=== PATIENT | female | born 1995 | race Caucasian/White ===

== ENCOUNTER 2016-09-09 08:31 | Observation (INO) ==
[2016-09-09 08:57] LABS: Bilirubin,Urine Negative (Negative); Blood,Urine Negative (Negative); Clarity,Urine Cloudy (Clear); Color,Urine Yellow (Yellow); Glucose,Urine (UA) Normal (Normal); Ketones,Urine Negative (Negative); Leukocyte Esterase,Urine Large (Negative); Nitrite,Urine Negative (Negative); Protein,Urine Trace mg/dL (Neg-Trace); Specific Gravity,Urine 1.019 (1.010-1.025); Urobilinogen,Urine Normal (Normal)
[2016-09-09 09:04] LABS: Bacteria,Urine Few per hpf (None-Few); Hyaline Casts,Urine None Seen per lpf (None-Few); Squamous Epithelial Cell,Urine Many per lpf (None-Few); WBC,Urine 30-50 per hpf (0-3)
--- NOTE | 2016-09-09 11:37 | Discharge Summary ---
Date of Encounter: 09/09/16 Time of Encounter: 11:37 - Discharge Diagnosis (1) 37 weeks gestation of Priority: Primary Status: Acute (2) Polyhydramnios Priority: Primary Status: Acute Qualifiers: Fetus number: single or unspecified fetus Trimester: third trimester Qualified Code(s): O40.3XX0 - Polyhydramnios, third trimester, not applicable or unspecified (3) NST (non-stress test) reactive Priority: Secondary Status: Acute Comments: Baseline 135 (4) False labor Priority: Primary Status: Acute Comments: Patient presents to triage with lower back pain and increased vaginal pressure and occasional contractions. Denies vaginal bleeding or leaking of fluid and endorses good movement. Patient stated last night contractions started approximately 3:00 this morning ranging from 5-10 minutes apart. 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 Patient with contraction every 2-3 minutes mild to palpation patient able smile and talk with family during contraction. No cervical change during 2 hour observation period. Will discharge home. Advised patient if she feels like contractions are stronger she would want to stay around the area may be having lunch and go shopping before driving the hour and 20 minutes home and come back to hospital for reevaluation if needed. Discussed labor precautions once return to triage and when to call provider with patient. Patient and family verbalized understanding - Discharge Medications Home Medications: Ranitidine HCl [Zantac] 150 mg PO DAILY #14 tablet 04/25/16 [Rx] Ranitidine Oral Soln [Zantac] 150 mg PO DAILY #14 mls 04/25/16 [Rx] Allergies/Adverse Reactions: Allergies codeine Allergy (Verified 02/13/16 06:19) See Comments novacaine Allergy (Uncoded 02/13/16 06:19) See Comments Data Procedures and tests throughout hospitalization: Laboratory Tests 09/09/16 08:45 Urine Color Yellow Urine Clarity Cloudy A Urine pH 6.0 Ur Specific [place] 1.019 Urine Protein Trace Urine Glucose (UA) Normal Urine Ketones Negative Urine Blood Negative Urine Nitrite Negative Urine Bilirubin Negative Urine Urobilinogen Normal Ur Leukocyte Esterase Large H Urine Microscopic RBC 3-5 H Urine Microscopic WBC 30-50 H Ur Squamous Epith Cells Many H Urine Bacteria Few Hyaline Casts None Seen Ur Culture Indicated? YES A Labs on day of discharge: Labs from last 24 hours 09/09/16 08:45 Urine Color Yellow Urine Clarity Cloudy A Urine pH 6.0 Ur Specific [place] 1.019 Urine Protein Trace Urine Glucose (UA) Normal Urine Ketones Negative Urine Blood Negative Urine Nitrite Negative Urine Bilirubin Negative Urine Urobilinogen Normal Ur Leukocyte Esterase Large H Urine Microscopic RBC 3-5 H Urine Microscopic WBC 30-50 H Ur Squamous Epith Cells Many H Urine Bacteria Few Hyaline Casts None Seen Ur Culture Indicated? YES A Date of admission: 09/09/16 08:31 Primary care physician: PCP NO Discharging clinician: Kenisha Kim Anticipated date of discharge: 09/09/16 - Patient Status Disposition: Home, Self-Care Condition: Good Functional capacity at discharge: independent ambulation Overall status at discharge: patient is back to baseline - Discharge Instructions Follow Up With: SAMINA,PCP [Primary Care Provider] - Additional Instructions: LABOR AND DELIVERY DISCHARGE INSTRUCTIONS Signs and Symptoms to be Reported to your Doctor Immediately: * Sudden gush, continuous or intermittent lead of fluid from vagina (note the time of gush and color of fluid) * Onset of bright red vaginal bleeding with or without pain (if you had a vaginal exam during this visit you may notice some dark red spotting. This is normal.) * Contractions that are 5 minutes apart (from the beginning of one contraction to the beginning of the next) and last 45-60 seonds; contractions that you can no longer walk, talk or laugh through. * A change in the baby's activity. This could be an increase or decrease in activity. * Severe headache which does not go away with tylenol. * Sudden swelling in the face, hands, arms and/or legs. * Upper abdominal pain - sometimes associated with heartburn or nausea and is not relieved by Maalox, Mylanta or Tums. * Kick Counts __ One hour after a meal, lay down on one side in a quiet place. Count the number of time the baby moves during an hour. 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: Total time spent providing and/or coordinating discharge services: Exam - Constitutional General appearance IM: A&O X 3 - Respiratory Respiratory exam: Present: CTAB - Cardiovascular Cardiovascular exam IM: Present: RRR - GI/Abdominal GI/Abdominal exam IM: normal bowel sounds, soft - Additional comments: Uterus soft and nontender to palpation and soft in between contractions - Extremities Exam Extremities exam IM: Present: normal capillary refill, normal inspection - Neurological Exam Neurological exam: normal gait, reflexes normal - VTE Reasons for not Prescribing Prophylaxis: Treatment not Indicated - Low risk for VTE
== END 2016-09-09 11:43 | disposition home or self-care (01) ==
LOC: 1NENULAB
PROVIDERS: ADMIT Advanced Practice Midwife; ATTEND Advanced Practice Midwife

== ENCOUNTER 2016-09-09 15:47 | Observation (INO) ==
--- NOTE | 2016-09-09 16:48 | Discharge Summary ---
Date of Encounter: 09/09/16 Time of Encounter: 16:47 - Discharge Diagnosis (1) 37 weeks gestation of Priority: Primary Status: Acute (2) False labor Priority: Secondary Status: Acute Comments: Patient reports in to triage after going out to lunch at [employer] and walking around [place]. Patient sees she feels increased pelvic pressure and occasional contractions, patient states feeling bearing down sensation with pelvic pressure. Vaginal exam unchanged from earlier. Per patient she had some fluids but not a great amount of fluids while out at lunch and walking around park, discussed need to have increased fluid intake later on in . If vaginal exam remains unchanged will discharge patient to home discussed with patient went to return to triage and call provider for follow-up. Patient scheduled for ultrasound and routine OB visit tomorrow told patient to keep both appointments (3) NST (non-stress test) reactive Priority: Primary Status: Acute Comments: Baseline 135 (4) Polyhydramnios Priority: Primary Status: Acute Comments: Ultrasound tomorrow Qualifiers: Fetus number: single or unspecified fetus Trimester: third trimester Qualified Code(s): O40.3XX0 - Polyhydramnios, third trimester, not applicable or unspecified - Discharge Medications Home Medications: Vitamins 1 tab PO DAILY 09/09/16 [History] Allergies/Adverse Reactions: Allergies codeine Allergy (Verified 02/13/16 06:19) See Comments novacaine Allergy (Uncoded 02/13/16 06:19) See Comments Date of admission: 09/09/16 15:47 Primary care physician: PCP NO Discharging clinician: Kenisha Kim Anticipated date of discharge: 09/09/16 - Patient Status Disposition: Home, Self-Care Condition: Good Functional capacity at discharge: independent ambulation Overall status at discharge: patient is back to baseline - Discharge Instructions Follow Up With: NO,PCP [Primary Care Provider] - - Diet and Activity Activity: resume usual activities as tolerated Diet: 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
== END 2016-09-09 17:21 | disposition home or self-care (01) ==
LOC: 1NENULAB
PROVIDERS: ADMIT Advanced Practice Midwife; ATTEND Advanced Practice Midwife

== ENCOUNTER 2016-09-23 | Inpatient (IN) ==
[2016-09-24] MEDS ORDERED: miSOPROStol 25 MCG TABLET PO PRN (07:46)
[2016-09-24] MEDS ORDERED: Ondansetron 4 MG/2 ML VIAL IVP PRN (07:46)
[2016-09-24] MEDS ORDERED: Naloxone 0.4 MG/ML INJ IVP PRN (07:46)
[2016-09-24] MEDS ORDERED: Famotidine 20 MG/2 ML VIAL IVP PRN (07:46)
[2016-09-24] MEDS ORDERED: *HR* Nalbuphine 20 MG/ML AMPUL IVP PRN (07:46)
[2016-09-24] MEDS ORDERED: 0.9 % Sodium Chloride 1,000 ML IVC SCH (08:00)
[2016-09-24 08:49] LABS: Basophils % 0.3 %; Eosinophils % 0.4 %; Hematocrit 34.7 % (35.3-44.9); Hemoglobin 11.4 g/dL (11.5-15.4); Immature Granulocytes % 0.5 % (0-4); Lymphocytes # 1.5 K/mcL (0.6-4.6); Lymphocytes % 15.3 %; Mean Corpuscular HGB Conc 32.9 g/dL (31.6-35.5); Mean Corpuscular Hemoglobin 28.6 pg (28.0-33.3); Mean Corpuscular Volume 87.2 fL (83.0-100.0); Mean Platelet Volume 13.5 fL (9.4-12.4); Monocytes # 0.7 K/mcL (0.0-1.3); Monocytes % 7.5 %; Neutrophils # 7.5 K/mcL (1.6-8.9); Platelet Count 200 K/mcL (140-400); Red Blood Count 3.98 M/mcL (3.82-4.97); Red Cell Distribution Width 13.7 % (11.5-14.5)
[2016-09-24] MEDS ORDERED: Prenatal Vit/FA 1 EACH TABLET PO SCH (09:00)
--- NOTE | 2016-09-24 09:38 | OB/GYN History & Physical ---
Date of Encounter: 09/24/16 Time of Encounter: 08:54 Assessment and Plan (1) History of polyhydramnios Current visit: Yes Status: Acute Admit for induction. (2) 39 weeks gestation of Current visit: Yes Status: Acute Admit for induction of labor with po cytotec. Routine labor management Patient may have epidural upon request Vaginal delivery expected POC per consult with Dr Green History of Present Illness Chief complaint: Induction of Labor HPI: Ms. Brand is a 20 year old female at 39 weeks 1 day that arrives to labor and delivery for an elective induction of labor. She has a history of obesity with and polyhydramnious. Her blood type is O negative, she is GBS negative, and her serology is as follows: Rubella immune, Hep B immune, RPR negative, Varicella positive, and HIV negative. She has allergies to codeine and novacaine. Her CACHORRO at 32 weeks was 27.01 and at 38 weeks was 20. Past Med Surg Social Fam HX - Past Medical History Medical history: other Psychiatric history: no psych history - Past Surgical History Surgical History: other - Social History Smoking Status: Never smoker Smokeless Tobacco Status: No Alcohol use: none Drug use: none - Family History Mother Adopted: Yes Living Status: Still Living Hx Family Cardiac Disorders: No Hx Family Respiratory Disorders: No Hx Family Cancer: No Hx Family GI Disorders: No Hx Family Genitourinary Disorders: No Hx Family Endocrine Disorder: No Hx Family Musculoskeletal Disorders: No Hx Family Neuromuscular Disorders: No Hx Family Neurologic Disorders: No Hx Family HEENT Disorders: No Hx Family Autoimmune Disorders: No Hx Family Reproductive Disorders: No Hx Family Psychosocial Disorders: No Hx Family Medical Disorders: No Obstetrical History - Pregnancies : 1 Para: 0 Term: 0 : 0 Ab's: 0 Livin Medications and Allergies Vitamins 1 tab PO DAILY 09/09/16 [History] Allergies codeine Allergy (Verified 02/13/16 06:19) See Comments novacaine Allergy (Uncoded 02/13/16 06:19) See Comments Review of System OB All systems PM: reviewed and no additional remarkable complaints except as stated Exam - Vital Signs Vital signs: Initial Vital Signs Temp Pulse Resp BP 98.6 F 90 24 140/79 09/24/16 08:17 09/24/16 08:17 09/24/16 08:09/24/16 08:17 - Constitutional Constitutional: well developed, well nourished, no acute distress - HEENT HEENT: Normocephaly, Mucus Membranes Moist - Neck Neck exam: full ROM - Lungs Respiratory exam: CTAB - Cardiovascular Cardiovascular exam: RRR, +S1, +S2 - Breasts Breast: bilateral: normal - Abdomen Abdomen: Present: bowel sounds normal, gravid - Extremities Extremities exam: normal capillary refill, normal inspection, radial pulses palpable and symetrical Deep Tendon Reflex Grade: 2+ Normal - Cervix Dilation: 2 Effacement: 70 Station: -2 - Uterus Uterus exam: Present: normal size, normal contour Results All other labs normal. - VTE Reasons for not Prescribing Prophylaxis: Treatment not Indicated - Low risk for VTE
[2016-09-24] MEDS ORDERED: Ringers Solution, Lactated 1,000 ML ONE (14:55)
[2016-09-24] MEDS ORDERED: Oxytocin 20 units/ LR 1000 mL 20 UNIT/1,000 ML BAG IVC ONE (14:56)
[2016-09-24] MEDS ORDERED: Oxytocin 20 units/ LR 1000 mL 20 UNIT/1,000 ML BAG IVC SCH (15:00)
--- NOTE | 2016-09-24 16:22 | OB Labor Progress Note ---
Date of Encounter: 09/24/16 Time of Encounter: 16:19 Labor Progress Note - Subjective Subjective: Pt in bed states contractions are getting stronger. Breathing though contraction. - Cervix Cervix: 4/90/-1 - Heart Tones Heart Tones: 135/moderate/no decels - [place]: 1-3 - Interventions Interventions: IUPC placed for contraction monitoring. - Plan Plan: Continue pitocin per policy, Nubain if desired (unable to have epidural. Anesthesia consulted and stated due to novicaine allergy unable to place epidural Clear liquid diet anticipate
--- NOTE | 2016-09-24 16:26 | OB Labor Progress Note ---
Date of Encounter: 09/24/16 Time of Encounter: 12:00 Labor Progress Note - Subjective Subjective: Pt resting in bed comfortable with contractions. - Cervix Cervix: 2/90/-2 - Heart Tones Heart Tones: 125/moderate/accels/no decles - Interventions Interventions: Santos placed without difficulty. Pt tolerated procedure well - Plan Plan: Santos until expelled and then AROM Clear liquid diet nuabin if desired Anesthesia consult for epidural concerns with novicaine allergy Anticipate
--- NOTE | 2016-09-24 21:42 | OB Labor Progress Note ---
Date of Encounter: 09/24/16 Time of Encounter: 20:30 Labor Progress Note - Subjective Subjective: patient coping well. nubain given for pain mangement. - Cervix Cervix: 5/100/-1 - Heart Tones Heart Tones: 120/moderate/variable decels - [place]: 1-2 minutes - Interventions Interventions: Pt repositioned from side to side and removed peanut ball. Pitocin turned to off. Tracing improved after removal of peanut ball - Plan Plan: Continue frequent repositioning. When returns to category 1 tracing resume pitocin if contractions inadequate. Updated Dr. Green about tracing.
--- NOTE | 2016-09-24 23:34 | OB Labor Progress Note ---
Date of Encounter: 09/24/16 Time of Encounter: 23:32 Labor Progress Note - Subjective Subjective: Patient breathing through contractions in bed. Family at bedside. Patient states that she is "very tired". - Vital Signs Vital Signs: Stable - Cervix Cervix: 5/100/0 molding to +1 - Heart Tones Heart Tones: FHTs 120s with moderate variability. Scalp stimulation positive Accels not present unless with scalp stim Early decelerations present - [place]: Contractions every 2-3 minutes 90 seconds in length. - Plan Plan: Discussed options for vaginal delivery vs delivery due to decrease in heart rate variability and accelerations, and no cervical change and increased caput. No IV pitocin currently infusing. Patient unable to have epidural due to allergy to novacaine; anesthesia aware. Patient agreeable to delivery if needed; Dr Green notified
[2016-09-24] MEDS ORDERED: Metoclopramide 10 MG/2 ML VIAL IVP ONE (23:59)
[2016-09-25] MEDS ORDERED: *HR* FentaNYL (PF) 100 MCG/2 ML VIAL IVP ONE
--- NOTE | 2016-09-25 02:29 | Anesthesia Evaluation PreOp ---
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 Significant HX Other Medical History: Diabetes Type II (gestational), Other (BMI 44) Anesthesia History: No Prior Anesthetic Complications Alcohol Use: none Drug use: none Medications and Allergies Vitamins 1 tab PO DAILY 09/09/16 [History] Allergies codeine Allergy (Verified 02/13/16 06:19) See Comments novacaine Allergy (Uncoded 02/13/16 06:19) See Comments - Meds/Allergy Pre-op Review Medications Reviewed: Yes Allergies Reviewed: Yes Beta Blockers on Current Med List: No Anesthesia Results - Labs 09/24/16 08:29 Anesthesia Exam Last Vital Signs Temp 98.6 F 09/24/16 08:17 Pulse 90 09/24/16 08:17 Resp 24 09/24/16 08:17 BP 140/79 09/24/16 08:17 Weight: 103 kg NPO (# of Hours): clears > 2hr, solid >> 8 hrs - HEENT Pupil (Motor): Pupils equal, EOMI Mallampati: II Teeth: Normal Oral Opening: Greater than 3 - SALES AGENT LOC: Oriented SALES AGENT Motor: Normal RUE, Normal LUE, Normal RLE, Normal LLE, Normal Face SALES AGENT Sensory: Normal: RUE, LUE, RLE, LLE, Face - Cardiac Rhythm: Regular Murmur: None - Pulmonary Breath Sounds: bilateral Clear Respiratory Effort: Symmetrical Anesthesia Assess/Plan ASA Score: [address] Scale for Level of Consciousness: Cooperative, oriented, and tranquil Anesthetic Plan: General Monitoring Plan: Standard Monitors Recovery Plan: PACU
[2016-09-25] MEDS ORDERED: *HR* Morphine Sulfate/PF 5 MG/10 ML AMPUL ONE ×2 (02:43→02:48)
[2016-09-25] MEDS ORDERED: *HR* FentaNYL (PF) 100 MCG/2 ML VIAL ONE (02:43)
--- NOTE | 2016-09-25 03:19 | Anesthesia Procedures ---
Date of Encounter: 09/25/16 Time of Encounter: 03:17 Procedures: Anesthesia - Epidural/Spinal Patient ID/Chart reviewed: Yes Patient examined: Yes OB Eval: Gestational age: 39 weeks OB Eval: : 1 OB Eval: Hx Para: 0 OB Eval: Dilated at (cm): 8 OB Eval: Contractions: Non-stressed pattern Consent Obtained: Yes Supplemental Oxygen: Nasal Cannula Supplemental Oxygen Rate (L/min): 2 Sedation: Fentanyl (mcg): 80 Site Prep: Aseptic Technique, Sterile prep and drape, Povidone-Iodine 1% Patient position: upright Interspace Used: L3-L4 Spinal Needle Gauge: 22 Spinal Dose: 20 mcg fentanyl Procedure: Narcotic spinal for pain relief. Patient with severe allergy to both codeine and novacaine and wants to avoid codeine/morphine and all local anesthetics at this time. Agreed for fentanyl spinal as she is currently 8 cm dilated and was hoping for pain relief. Spinal was completed without any subcutaneous lidocaine. Fentanyl 20 mcg mixed with PF sterile saline was administered.
--- NOTE | 2016-09-25 06:37 | Event Note ---
Date of Encounter: 09/25/16 Time of Encounter: 02:36 This CNM called to the bedside by Dr Green. Patient has progressed to 8cm dilation while awaiting anesthesia for the OR; Per Dr Green, dilation is 8cm/ 100%/+1 with decreased caput. tracing has progressed from a category II to a category I. Patient elects to continue to vaginal delivery if she can have pain medication. Anesthesia available on unit at this time for consultation. FHTs 125 with moderate variability and 15x15 accels. No decels noted. Continue routine labor management May start pitocin for adequate labor contractions if category I tracing remains Anesthesia consulted for spinal pain medication Vaginal delivery expected if cervical change continues, physician available for delivery if necessary POC per consult with Dr Green
--- NOTE | 2016-09-25 06:47 | OB Labor Progress Note ---
Date of Encounter: 09/25/16 Time of Encounter: 06:44 Labor Progress Note - Subjective Subjective: Patient resting calmly in bed. Coping well with contractions. States she has the urge to push with each contraction. - Cervix Cervix: complete/+1 - Heart Tones Heart Tones: FHT 125 with moderate variability and accels 15x15 present - [place]: Contractions every 2-6 minutes 70 seconds in length. - Interventions Interventions: Cervical exam; will begin to push - Plan Plan: Begin to push Vaginal delivery expected; Dr Green available
[2016-09-25] MEDS ORDERED: Ringers Solution, Lactated 1,000 ML ONE ×2 (09:31→10:48)
--- NOTE | 2016-09-25 09:39 | OB Labor Progress Note ---
Date of Encounter: 09/25/16 Time of Encounter: 09:37 Labor Progress Note - Subjective Subjective: Pt feeling pressure and urge to push with contractions. - Cervix Cervix: pushing - Heart Tones Heart Tones: Moderate variability, variable and prolonged decelerations intermittently with pushing. Good scalp stim. Dr. Kahn has viewed tracing and states ok to continue pushing at this time. She is readily available if needed. - Plan Plan: Continue to push intermittently. Dr. Kahn in agreement and is viewing tracing.
--- NOTE | 2016-09-25 10:24 | OB Labor Progress Note ---
Date of Encounter: 09/25/16 Time of Encounter: 10:10 Labor Progress Note - Cervix Cervix: 10/100/0 vertex advances to +1 with pushing witnessed. - Heart Tones Heart Tones: baseline 120's currently, early and variable decels noted with contractions and pushing. scalp stim elicited by CNM. - Lebam Lebam: infrequent. Pitocin is currently off. - Interventions Interventions: Continue active labor - Plan Plan: Continue active pushing
--- NOTE | 2016-09-25 12:35 | OB/GYN Procedure Note ---
Delivery - Delivery Date: 09/25/16 Provider: Shayy Kahn Intrapartum events: prolonged 2nd stage>2.5hr, other(please specify) (category 2 ) Delivery induction: johnson, misoprostol Delivery augmentation: rupture of membranes, pitocin Delivery monitor: external FHT, external uterine, internal FHT, internal uterine Anesthesia: other (spinal) - (s) A Delivery Date: 09/25/16 Infant Delivery Time: 12:05 Presentation: vertex Position: OA Route of delivery: vacuum extraction Gender: Male Viability: Viable Pounds: 7 Ounces: 0 at 1 minute: 8 at 5 mins: 9 Shoulder Dystocia: not encountered Specimens collected: cord blood Placenta: spontaneous - Repair Episiotomy: none Laceration Description: Perineal - 2nd Degree, Vaginal - Complications Delivery complications: none Delivery comments: Called to room with patient complete and +2 station. Patient was reaching maternal exhaustion with a category 2 tracing verbal consent obtained for vacuum application. Bladder is emptied using straight catheter. Kiwi vacuum was applied to 500 mmHg with 3 pop offs and advancement of the head to +3 station. Under maternal effort she delivered a viable male weighing 7 lb and Apgars 8 and 9 at one and 5 minutes respectively over second-degree perineal laceration. Infant was placed on mom's abdomen. Cord was doubly clamped and cut. Cord blood was collected. Placenta delivered spontaneously, complete, and intact with a three-vessel cord. The vaginal laceration was repaired using 3-0 Vicryl and extended the second-degree laceration repaired using the same suture in standard fashion. Patient tolerated the procedure well. Sponge and needle counts were correct at the end of the procedure. Mother and are recovering in the LDR in stable condition. - Disposition Mom disposition: stable in LDR [place] disposition: stable in LDR
[2016-09-25] MEDS ORDERED: Oxytocin 20 units/ LR 1000 mL 20 UNIT/1,000 ML BAG IVC SCH (14:47)
[2016-09-25] MEDS ORDERED: Rho Immune Globulin 1,500 UNIT SYRINGE IM PRN (14:47)
[2016-09-25] MEDS ORDERED: Acetaminophen 325 MG TABLET PO PRN (14:47)
[2016-09-25] MEDS ORDERED: Measles/Mumps/Rubella Vacc 0.5 ML VIAL SQ PRN (14:47)
[2016-09-25] MEDS: Ibuprofen 600 MG TABLET PO PRN (19:20)
[2016-09-26] MEDS: Ibuprofen 600 MG TABLET PO PRN ×2 (03:33→20:15)
[2016-09-26] MEDS: Prenatal Vit/FA 1 EACH TABLET PO SCH (07:43)
--- NOTE | 2016-09-26 08:46 | OB/GYN Progress Note ---
Date of Encounter: 09/26/16 Time of Encounter: 08:44 - Assessment and Plan (1) Vaginal delivery Current Visit: Yes Status: Acute Stable in post . Continue current management. Anticipate discharge tomorrow. Subjective - Subjective Interval history: Pt states feeling good just tired, pain well managed with po pain medication. . Pt states she prefers to be discharged tomorrow. Patient reports: appetite normal, voiding normally, pain well controlled, ambulating normally : doing well Objective - Latest Vital Signs Latest vital signs: Vital Signs Temp Pulse Pulse Resp BP Pulse Ox 09/26/16 07:45 97.8 F 93 12 138/84 99 09/26/16 03:20 97.8 F 88 20 114/72 98 09/25/16 19:54 98.3 F 102 16 129/89 100 09/25/16 18:59 18 09/25/16 18:25 99.2 F 100 18 111/64 09/25/16 16:45 98.5 F 97 97 16 136/92 99 09/25/16 15:47 97.8 F 102 102 18 145/98 97 09/25/16 14:47 98.0 F 94 94 16 147/92 99 Intake and Output 09/25/16 09/26/16 09/26/16 23:59 07:59 15:59 Intake Total 700 / 700 500 / 500 Output Total 400 / 400 850 / 850 Balance 300 / 300 -350 / -350 Intake: Oral 700 / 700 500 / 500 Output: Urine 400 / 400 850 / 850 - Exam Lungs: bilateral: normal Chest: Normal S1, Normal S2 Extremities: Present: normal Abdomen: Present: normal appearance Uterus: Present: normal, firm Uterus Position: Midline - Labs Labs: Laboratory Results - last 24 hr 09/25/16 12:20 Screen NEGATIVE Baby's Blood Type O RH POSITIVE Mother's Blood Type O RH NEGATIVE Rhogam Indicated YES Rhogam Req for Mother 1
--- NOTE | 2016-09-27 07:26 | Discharge Summary ---
Date of Encounter: 09/27/16 Time of Encounter: 07:24 - Discharge Diagnosis (1) Breast feeding status of mother Priority: Secondary Status: Acute Comments: support prn (2) Vaginal delivery Priority: Primary Status: Acute Comments: Continue routine care discharge home today follow up with CNM in 4-6 weeks - Discharge Medications Prescriptions: Ibuprofen [Motrin] 600 mg PO Q6HR PRN #60 tablet PRN Reason: Cramping Breast Pump [BREAST PUMP] 1 each .ROUTE AD #1 each Docusate [Colace] 100 mg PO BID #60 capsule Home Medications: Vitamins 1 tab PO DAILY 09/09/16 [History] Breast Pump [BREAST PUMP] 1 each .ROUTE AD #1 each 09/27/16 [Rx] Docusate [Colace] 100 mg PO BID #60 capsule 09/27/16 [Rx] Ibuprofen [Motrin] 600 mg PO Q6HR PRN #60 tablet 09/27/16 [Rx] Vit/FA 1 each PO DAILY tablet 09/27/16 [Rx] Allergies/Adverse Reactions: Allergies codeine Allergy (Verified 02/13/16 06:19) See Comments novacaine Allergy (Uncoded 02/13/16 06:19) See Comments Data Procedures and tests throughout hospitalization: Laboratory Tests 09/24/16 09/25/16 08:29 12:20 WBC 9.9 RBC 3.98 Hgb 11.4 L Hct 34.7 L MCV 87.2 MCH 28.6 MCHC 32.9 RDW 13.7 Plt Count 200 MPV 13.5 H Immature Gran % 0.5 Seg Neutrophils % 76.0 Lymphocytes % 15.3 Monocytes % 7.5 Eosinophils % 0.4 Basophils % 0.3 Neutrophils # 7.5 Lymphocytes # 1.5 Monocytes # 0.7 Eosinophils # 0.0 Basophils # 0.0 Screen NEGATIVE Baby's Blood Type O RH POSITIVE Mother's Blood Type O RH NEGATIVE Rhogam Indicated YES Rhogam Req for Mother 1 Labs on day of discharge: Labs from last 24 hours 09/25/16 12:20 Screen NEGATIVE Rhogam Req for Mother 1 Date of admission: 09/24/16 07:20 Primary care physician: PCP NO Consults: 09/25/16 14:47 Consult to Shoe Clerk [CONS] Routine Comment: Vaginal delivery, consult needed Discharging clinician: Mariela Gomes Anticipated date of discharge: 09/27/16 - Patient Status Disposition: Home, Self-Care Condition: Good Functional capacity at discharge: independent ambulation - Discharge Instructions Follow Up With: NO,PCP [Primary Care Provider] - Felipa Forrest CNM [Non-Partnered Physician] - - Diet and Activity Activity: increase activity as tolerated Diet: regular diet Hospital Course Reason for admission: induction of labor Delivery: Episiotomy: none Other procedures: none complications: none Discharge diagnosis: IUP at term delivered [place] baby: male (breast feeding, mother is pumping infant in nicu) Time Attestation: Total time spent providing and/or coordinating discharge services: Time Spent: Less than 30 minutes Exam - Constitutional Vitals: Temp Pulse Resp BP Pulse Ox 98.6 F 98 14 138/85 100 09/26/16 20:15 09/26/16 20:15 09/26/16 20:15 09/26/16 20:15 09/26/16 20:15 General appearance IM: A&O X 3, pleasant, answers questions appropriately - Respiratory Respiratory exam: Present: CTAB - Cardiovascular Cardiovascular exam IM: Present: RRR, +S1, +S2 - GI/Abdominal GI/Abdominal exam IM: normal bowel sounds - Uterine Tone: Firm Uterus Position: 1 Finger Below Umbilicus, Midline - Extremities Exam Extremities exam IM: Present: full ROM, normal capillary refill, normal inspection - Neurological Exam Neurological exam: alert, oriented X3, reflexes normal
[2016-09-27 08:09] VITALS: BP 136/89
[2016-09-27] MEDS: Prenatal Vit/FA 1 EACH TABLET PO SCH (09:17)
== END 2016-09-27 10:08 | disposition home or self-care (01) | DRG 775 ==
LOC: 1NENULAB 09-24 07:20 → 1NENUOBS 09-25 14:47
PROVIDERS: ADMIT Advanced Practice Midwife; ATTEND Advanced Practice Midwife

== ENCOUNTER → 2016-09-23 00:54 | Observation (INO) ==
--- NOTE | 2016-09-22 22:33 | OB/GYN Progress Note ---
Date of Encounter: 09/22/16 Time of Encounter: 22:30 - Assessment and Plan (1) 38 weeks gestation of Current Visit: Yes Status: Acute (2) History of polyhydramnios Current Visit: Yes Status: Acute (3) Uterine contractions during Current Visit: Yes Status: Acute Cervical exam unchanged from previous exam the office. Will monitor patient for 2 hours and then reassess cervical exam 2340: Patient states she has not felt uterine contractions for several minutes is occasionally having contractions on monitor will recheck patient at 12:30 AM to assess for cervical change if no change discharge patient (4) Decreased movement Current Visit: Yes Status: Acute Patient states she has felt baby move multiple times since admission after being placed on monitor. Patient states baby is currently active. movement palpated by CNM (5) NST (non-stress test) reactive Current Visit: Yes Status: Acute Baseline 120 Subjective - Subjective Interval history: 20-year-old at 38+6 days presents for labor evaluation and reports of decreased movement. Patient states she has been feeling contractions off and on all day however contractions do decrease when she is up and moving around and walking, but contractions did increase over the one-hour car drive here. Patient states she is feeling decreased movement spoke with CNM earlier this evening CM and stated if movements less than 10 and 2 hours to come in and be evaluated patient says in the last 2 hours she felt about 10 movements, but the movements are more spaced out than they usually are at this time of evening. Patient's has been complicated by polyhydramnios however last CACHORRO was 20. Patient denies any leaking of fluid or vaginal bleeding Antepartum ROS: contractions, no loss of fluid, no vaginal bleeding, no movement normal (Pt states decrease in movment from usual amount felt. ) Objective - Exam FHR: category 1 (Baseline 120) Auscultation: bilateral: normal Abdomen: Present: soft, gravid Cervical dilation: 2 Cervix effacement: 60 station: -3
== END | disposition home or self-care (01) ==
LOC: 1NENULAB
PROVIDERS: ADMIT Advanced Practice Midwife; ATTEND Advanced Practice Midwife

== ENCOUNTER 2021-08-26 03:59 | Inpatient (IN) ==
[2021-08-26] MEDS ORDERED: Oxytocin 30 UNIT/503 ML BAG IVC ONE (04:03)
[2021-08-26] MEDS ORDERED: Naloxone 0.4 MG/ML INJ IVP PRN (05:09)
[2021-08-26] MEDS ORDERED: Metoclopramide 10 MG/2 ML VIAL IVP PRN (05:09)
[2021-08-26] MEDS ORDERED: Famotidine 20 MG/2 ML VIAL IVP PRN (05:09)
[2021-08-26 05:38] LABS: Basophils % 0.1 %; Eosinophils % 0.1 %; Hematocrit 21.4 % (35.3-44.9); Hemoglobin 7.1 g/dL (11.5-15.4); Immature Granulocytes % 0.5 % (0-4); Immature Platelets 13.8 % (1.1-6.1); Lymphocytes # 0.6 K/mcL (0.6-4.6); Lymphocytes % 6.2 %; Mean Corpuscular HGB Conc 33.2 g/dL (31.6-35.5); Mean Corpuscular Hemoglobin 30.9 pg (28.0-33.3); Mean Platelet Volume 13.6 fL (9.4-12.4); Monocytes # 0.3 K/mcL (0.0-1.3); Monocytes % 3.3 %; Neutrophils # 9.2 K/mcL (1.6-8.9); Platelet Count 150 K/mcL (140-400); Red Cell Distribution Width 13.9 % (11.5-14.5); Segmented Neutrophils % 89.8 %; White Blood Count 10.3 K/mcL (4.3-11.1)
[2021-08-26 05:51] LABS: Alanine Aminotransferase 11 Units/L (7-52); Aspartate Amino Transferase 8 Units/L (13-39); BUN/Creatinine Ratio 23 (6-26); Blood Urea Nitrogen 6 mg/dL (6-20); Glucose 88 mg/dL (70-105); Lactate Dehydrogenase 113 Units/L (140-271); Uric Acid 2.9 mg/dL (2.3-7.6); eGFR For African Americans > 60 (> 60); eGFR For Non-African Americans > 60 (> 60)
[2021-08-26] MEDS ORDERED: Benzocaine/Menthol 56 GM AEROSOL SPRAY TP PRN (06:20)
[2021-08-26] MEDS ORDERED: Ondansetron ODT 4 MG TAB.RAPDIS SL PRN (06:20)
[2021-08-26] MEDS ORDERED: *HR* OxyCODONE Immed Rel 5 MG TABLET PO PRN (06:20)
[2021-08-26] MEDS ORDERED: Lanolin 7 G OINT...G. TP PRN (06:20)
[2021-08-26] MEDS ORDERED: Rho Immune Globulin 1,500 UNIT SYRINGE IM PRN (06:20)
[2021-08-26] MEDS: Ibuprofen 600 MG TABLET PO SCH ×3 (06:49→18:53)
[2021-08-26] MEDS: Acetaminophen 325 MG TABLET PO SCH ×3 (06:49→18:54)
[2021-08-26 06:57] LABS: Influenza A PCR Negative (Negative); Influenza B PCR Negative (Negative); Resp. Syncytial Virus PCR Negative (Negative); SARS-CoV-2 by PCR (In House) Negative (Negative)
[2021-08-26] MEDS: Prenatal Vit/FA 1 EACH TABLET PO SCH (09:09)
[2021-08-26 10:16] LABS: Amphetamine Screen,Urine Negative ng/mL (Cutoff=1000); Barbiturate Screen,Urine Negative ng/mL (Cutoff=200); Benzodiazepines Screen,Urine Negative ng/mL (Cutoff=200); Cannabinoid Screen,Urine Negative ng/mL (Cutoff = 50); Cocaine Screen,Urine Negative ng/mL (Cutoff= 300); Opiate Screen,Urine Negative ng/mL (Cutoff=300); Phencyclidine Screen,Urine Negative ng/mL (Cutoff=25)
[2021-08-26 18:47] LABS: Bilirubin,Urine Negative (Negative); Blood,Urine Negative (Negative); Clarity,Urine Clear (Clear); Color,Urine Light-Yellow (Yellow); Glucose,Urine (UA) Normal (Normal); Ketones,Urine Negative (Negative); Leukocyte Esterase,Urine Negative (Negative); Nitrite,Urine Negative (Negative); PH,Urine 5.5 pH Units (5.0-8.0); Protein,Urine Negative (Neg-Trace); Specific Gravity,Urine 1.017 (1.010-1.025); Urobilinogen,Urine Normal (Normal)
[2021-08-26 19:02] LABS: Red Cell Distribution Width 13.7 % (11.5-14.5); Segmented Neutrophils % 75.1 %
[2021-08-26 19:04] LABS: Basophils % 0.2 %; Eosinophils % 0.4 %; Hematocrit 28.4 % (35.3-44.9); Hemoglobin 9.3 g/dL (11.5-15.4); Immature Granulocytes % 0.6 % (0-4); Immature Platelets 17.3 % (1.1-6.1); Lymphocytes # 1.7 K/mcL (0.6-4.6); Lymphocytes % 15.4 %; Mean Corpuscular HGB Conc 32.7 g/dL (31.6-35.5); Mean Corpuscular Hemoglobin 29.6 pg (28.0-33.3); Mean Corpuscular Volume 90.4 fL (83.0-100.0); Mean Platelet Volume 13.1 fL (9.4-12.4); Monocytes # 0.9 K/mcL (0.0-1.3); Monocytes % 8.3 %; Platelet Count 193 K/mcL (140-400); Red Blood Count 3.14 M/mcL (3.82-4.97); White Blood Count 11.1 K/mcL (4.3-11.1)
[2021-08-26 19:06] LABS: Neutrophils # 8.3 K/mcL (1.6-8.9)
[2021-08-26 23:48] VITALS: O2SAT 98
[2021-08-27] MEDS: Acetaminophen 325 MG TABLET PO SCH (00:41)
[2021-08-27 05:24] LABS: Red Cell Distribution Width 13.8 % (11.5-14.5)
[2021-08-27 05:26] LABS: Basophils % 0.4 %; Eosinophils # 0.1 K/mcL (0.0-0.6); Eosinophils % 0.7 %; Hematocrit 26.9 % (35.3-44.9); Hemoglobin 8.9 g/dL (11.5-15.4); Immature Granulocytes % 0.8 % (0-4); Immature Platelets 16.4 % (1.1-6.1); Lymphocytes # 2.5 K/mcL (0.6-4.6); Lymphocytes % 25.5 %; Mean Corpuscular HGB Conc 33.1 g/dL (31.6-35.5); Mean Corpuscular Hemoglobin 29.9 pg (28.0-33.3); Mean Corpuscular Volume 90.3 fL (83.0-100.0); Mean Platelet Volume 13.4 fL (9.4-12.4); Monocytes # 0.7 K/mcL (0.0-1.3); Monocytes % 6.8 %; Neutrophils # 6.3 K/mcL (1.6-8.9); Platelet Count 164 K/mcL (140-400); Red Blood Count 2.98 M/mcL (3.82-4.97); Segmented Neutrophils % 65.8 %; White Blood Count 9.6 K/mcL (4.3-11.1)
[2021-08-27 07:42] VITALS: BP 121/79; PULSE 78; TEMP 98
[2021-08-27] MEDS: Prenatal Vit/FA 1 EACH TABLET PO SCH (08:19)
== END 2021-08-27 16:00 | disposition home or self-care (01) | DRG 806 ==
LOC: 1NENULAB 03:59 → 1NENUOBS 06:22
PROVIDERS: ADMIT Obstetrics & Gynecology; ATTEND Obstetrics & Gynecology